=== PATIENT | female | born 1980 | race Caucasian/White ===

== ENCOUNTER 2019-05-04 11:04 | Emergency (ER) | payer OTHER ==
[~2019-05-04] VITALS: Ht 165.1 cm; Wt 72.0 kg
[2019-05-04] MEDS ORDERED: ACETAMINOPHEN 325MG TABLET PO PRN (11:45)
[2019-05-04 12:02] LABS: CLARITY URINE CLEAR (CLEAR); COLOR URINE YELLOW (YELLOW); KETONES URINE NEGATIVE (NEGATIVE); LEUKOCYTE ESTERASE URINE 3+ (NEGATIVE); NITRITE URINE NEGATIVE (NEGATIVE); OCCULT BLOOD URINE NEGATIVE (NEGATIVE); PH URINE 7.5 (4.5-8.0); PROTEIN URINE NEGATIVE (NEGATIVE); SPECIFIC GRAVITY URINE 1.014 (1.005-1.030); UROBILINOGEN URINE 0.2 E.U./dL (0.2-1.0)
[2019-05-04 12:05] LABS: BASOPHILS % 0.4 % (0.0-2.0); EOSINOPHILS % 0.7 % (0.0-5.0); HEMATOCRIT. 33.7 % (36.0-48.0); HEMOGLOBIN. 11.7 g/dL (12.0-16.0); LYMPHOCYTES % 11.8 % (20.0-50.0); MEAN CORPUSCULAR HEMOGLOBIN 32.4 pg (28.0-32.0); MEAN CORPUSCULAR VOLUME 93.2 fL (81.0-99.0); MEAN PLATELET VOLUME 8.7 fl (7.4-10.4); MONOCYTES % 4.8 % (2.0-8.0); NEUTROPHILS % 82.3 % (40.0-76.0); PLATELET 245 x1000/uL (130-400); RED BLOOD CELL COUNT 3.62 mill/uL (4.2-5.4); RED CELL DISTRIBUTION WIDTH 13.6 % (11.6-14.6)
[2019-05-04 12:10] LABS: CHLORIDE 110 mEq/L (98-107)
[2019-05-04 12:34] LABS: B-HCG QUANTITATIVE 3568 mIU/mL (<3)
[2019-05-04 14:23] VITALS: BP 103/48
== END 2019-05-04 14:40 | disposition home or self-care (01) ==
LOC: ER 11:04
DX: O26.892 Other specified pregnancy related conditions, second trimester (principal); R07.9 Chest pain, unspecified; O23.42 Unspecified infection of urinary tract in pregnancy, second trimester; Z3A.22 22 weeks gestation of pregnancy; Z88.0 Allergy status to penicillin
CPT/HCPCS: 36415; 76805; 81003; 84702; 93005; 93970; 99284

== ENCOUNTER 2020-05-08 07:25 | Emergency (ER) | payer OTHER, MEDICAID ==
[~2020-05-08] VITALS: Ht 160 cm; Wt 78.0 kg
[2020-05-08 08:15] LABS: CLARITY URINE CLEAR (CLEAR); KETONES URINE NEGATIVE (NEGATIVE); LEUKOCYTE ESTERASE URINE 1+ (NEGATIVE); NITRITE URINE NEGATIVE (NEGATIVE); OCCULT BLOOD URINE TRACE (NEGATIVE); PROTEIN URINE NEGATIVE (NEGATIVE); SPECIFIC GRAVITY URINE 1.017 (1.005-1.030); UROBILINOGEN URINE 0.2 E.U./dL (0.2-1.0)
[2020-05-08 08:17] LABS: COLOR URINE YELLOW (YELLOW)
[2020-05-08 08:25] LABS: BASOPHILS % 0.7 % (0.0-2.0); EOSINOPHILS % 1.2 % (0.0-5.0); HEMOGLOBIN. 13.3 g/dL (12.0-16.0); LYMPHOCYTES % 26.6 % (20.0-50.0); MEAN CORPUSCULAR HEMOGLOBIN 31.2 pg (28.0-32.0); MEAN CORPUSCULAR VOLUME 93.8 fL (81.0-99.0); MEAN PLATELET VOLUME 8.7 fl (7.4-10.4); MONOCYTES % 5.3 % (2.0-8.0); NEUTROPHILS % 66.2 % (40.0-76.0); PLATELET 301 x1000/uL (130-400); RED BLOOD CELL COUNT 4.27 mill/uL (4.2-5.4); RED CELL DISTRIBUTION WIDTH 13.9 % (11.6-14.6)
[2020-05-08 08:27] LABS: CHLORIDE 106 mEq/L (98-107)
[2020-05-08 08:37] LABS: B-HCG QUANTITATIVE 32 mIU/mL (<3)
[2020-05-08 10:00] VITALS: BP 115/60
== END 2020-05-08 10:58 | disposition home or self-care (01) ==
LOC: ER 07:25
DX: N39.0 Urinary tract infection, site not specified (principal); Z88.0 Allergy status to penicillin
CPT/HCPCS: 36415; 76830; 76856; 80053; 81003; 81025; 84702; 85025; 93005; 99285

== ENCOUNTER 2022-05-18 09:09 | Emergency (ER) | payer MEDICAID, OTHER ==
[~2022-05-18] VITALS: Ht 157.5 cm; Wt 82.0 kg
[2022-05-18 09:14] VITALS: BP 121/78
[2022-05-18] MEDS ORDERED: KETOROLAC 60MG/2ML VIAL IM ONE (10:00)
[2022-05-18] MEDS ORDERED: LORAZEPAM 0.5MG TABLET PO ONE (10:00)
[2022-05-18] MEDS ORDERED: LORAZEPAM 0.5MG TABLET PO NR (10:45)
[2022-05-18] MEDS ORDERED: METH-653 MT (11:13)
[2022-05-18] MEDS ORDERED: IBUP-2029 MT (11:13)
== END 2022-05-18 11:53 | disposition home or self-care (01) ==
LOC: ER 09:20
DX: M54.50 Low back pain, unspecified (principal); Z88.0 Allergy status to penicillin
CPT/HCPCS: 81025; 96372; 99283; J1885

== ENCOUNTER 2023-03-14 11:20 | Emergency (ER) | payer OTHER, MEDICAID ==
[~2023-03-14] VITALS: Ht 160 cm; Wt 84.5 kg
[~2023-03-14 11:20] MED LIST: IBUP-2029 MT; METH-653 MT
[2023-03-14 11:40] VITALS: BP 121/76; PULSE 79; RESP 12
[2023-03-14] MEDS ORDERED: NAPR-1129 MT (13:08)
== END 2023-03-14 13:21 | disposition home or self-care (01) ==
LOC: ER 11:20
DX: S99.912A Unspecified injury of left ankle, initial encounter (principal); W01.0XXA Fall on same level from slipping, tripping and stumbling without subsequent striking against object, initial encounter; Y93.89 Activity, other specified; Y92.89 Other specified places as the place of occurrence of the external cause; Y99.8 Other external cause status
CPT/HCPCS: 73610; 99283

== ENCOUNTER 2023-07-04 12:44 | Emergency (ER) | payer OTHER, MEDICAID ==
[~2023-07-04] VITALS: Ht 154.9 cm; Wt 77.1 kg
[~2023-07-04 12:44] MED LIST changes: +NAPR-1129 MT
[2023-07-04 12:54] VITALS: O2SAT 97
[2023-07-04] MEDS ORDERED: KETOROLAC 30MG/ML VIAL IM ONE (14:15)
[2023-07-04] MEDS ORDERED: LIDOCAINE 5% PATCH TOP SCH (14:15)
[2023-07-04] MEDS ORDERED: ACETAMINOPHEN 325MG TABLET PO ONE (14:15)
[2023-07-04 15:10] LABS: CLARITY URINE CLEAR (CLEAR); COLOR URINE YELLOW (YELLOW); GLUCOSE URINE NEGATIVE (NEGATIVE); KETONES URINE NEGATIVE (NEGATIVE); LEUKOCYTE ESTERASE URINE NEGATIVE (NEGATIVE); NITRITE URINE NEGATIVE (NEGATIVE); OCCULT BLOOD URINE TRACE (NEGATIVE); PROTEIN URINE NEGATIVE (NEGATIVE); SPECIFIC GRAVITY URINE 1.025 (1.005-1.030)
[2023-07-04] MEDS ORDERED: TOPUD MT (15:10)
[2023-07-04] MEDS ORDERED: NAPR-681 MT (15:10)
[2023-07-04] MEDS ORDERED: LIDO700A15 TP (15:10)
[2023-07-04] MEDS ORDERED: CYCL5TAB MT (15:10)
[2023-07-04 15:13] LABS: SQUAMOUS EPITHELIAL CELL URINE 1+ /lpf (RARE/1+); WBC URINE 0-2 /hpf (0-2); YEAST URINE NONE SEEN
[2023-07-04 15:24] LABS: MUCUS URINE 2+ /lpf (< = 2+)
[2023-07-04 15:25] LABS: BACTERIA URINE 2+
[2023-07-04 15:37] VITALS: BP 124/77; PULSE 72; RESP 18; TEMP 98.2
== END 2023-07-04 15:39 | disposition home or self-care (01) ==
LOC: ER 13:07
DX: S39.012A Strain of muscle, fascia and tendon of lower back, initial encounter (principal); Z88.0 Allergy status to penicillin; W18.11XA Fall from or off toilet without subsequent striking against object, initial encounter; Y93.89 Activity, other specified; Y92.89 Other specified places as the place of occurrence of the external cause; Y99.8 Other external cause status
CPT/HCPCS: 81003; 81025; 96372; 99283; J1885; Z7610